=== PATIENT | male | born 1970 | race Caucasian/White ===

== ENCOUNTER 2017-06-21 10:33 | Emergency (ER) | payer BC, OTHER ==
[~2017-06-21] VITALS: Ht 180.3 cm; Wt 89.1 kg
[~2017-06-21 10:33] MED LIST: MULTTAB PO; NEXI20CA PO; ZYRT10CA PO
[2017-06-21] MEDS ORDERED: AMLO5CAP PO (10:44)
[2017-06-21] MEDS ORDERED: BENZ100C5 PO (10:44)
[2017-06-21] MEDS ORDERED: CEFU1TAB20 PO (10:44)
--- NOTE | 2017-06-21 11:28 | REP ---
Clinical: Shortness of breath. Technique: PA and lateral. Comparison: 12/12/2001. Findings: Subtle early left lower lobe infiltrate cannot be excluded and should be correlated with physical examination and auscultation. The remainder of lung gonzales are clear. No effusion. No pneumothorax. Mediastinum and cardiac silhouette normal. Skeletal structures intact. Impression: Suspected early left lower lobe infiltrate requires correlation. Signed by Bayron Calloway MD 06/21/2017 11:19 A
[2017-06-21] MEDS ORDERED: DOXY100T16 PO (11:57)
[2017-06-21] MEDS ORDERED: PRED20TA PO (11:57)
[2017-06-21 12:15] VITALS: BP 146/84
== END 2017-06-21 12:20 | disposition home or self-care (01) ==
LOC: M ED 10:33
DX: J18.9 Pneumonia, unspecified organism (principal); R03.0 Elevated blood-pressure reading, without diagnosis of hypertension; Z87.891 Personal history of nicotine dependence; Z91.048 Other nonmedicinal substance allergy status; Z79.899 Other long term (current) drug therapy

== ENCOUNTER 2017-12-28 14:34 | Emergency (ER) | payer BC, OTHER ==
[2017-12-28 16:58] LABS: BASO % 0.5 % (0.0-1.0); EOS # 0.1 10^3/uL (0.0-0.50); EOS % 1.5 % (0.0-3.0); HEMATOCRIT 43.5 % (42.0-52.0); IMMATURE GRANULOCYTE % 0.4 % (0-3.0); LYMPH # 2.5 10^3/uL (1.5-4.5); LYMPH % 30.9 % (24.0-44.0); MEAN CORPUSCULAR HEMOGLOBIN 31.9 pg (27.0-33.0); MEAN CORPUSCULAR HGB CONC 34.5 g/dl (32.0-36.5); MEAN CORPUSCULAR VOLUME 92.6 fl (80.0-96.0); MONO # 0.9 10^3/uL (0.0-0.8); MONO % 11.5 % (0.0-5.0); NEUTROPHILS # 4.4 10^3/uL (1.8-7.7); NEUTROPHILS % 55.2 % (36.0-66.0); PLATELET COUNT, AUTOMATED 274 10^3/uL (150-450)
[2017-12-28] MEDS: NS 1,000 ML IV (17:05)
[2017-12-28] MEDS: diphenhydrAMINE INJ 50MG/ML VIAL (J1200) IV (17:05)
[2017-12-28] MEDS: KETOROLAC 30 MG/ML VIAL (J1885) IV (17:05)
[2017-12-28 17:20] LABS: ANION GAP 9 MEQ/L (8-16); BLOOD UREA NITROGEN 25 MG/DL (7-18); CALCIUM LEVEL 9.6 MG/DL (8.5-10.1); CARBON DIOXIDE LEVEL 28 MEQ/L (21-32); CHLORIDE LEVEL 106 MEQ/L (98-107); CREATININE FOR GFR 0.77 MG/DL (0.70-1.30); GLOMERULAR FILTRATION RATE > 60.0 (>60); GLUCOSE, FASTING 102 MG/DL (70-100); POTASSIUM SERUM 4.5 MEQ/L (3.5-5.1); SODIUM LEVEL 143 MEQ/L (136-145)
[2017-12-28] MEDS ORDERED: ISOVUE-370 76% 100ML VIAL (Q9967) As Ordered (17:32)
[2017-12-28] MEDS: METOCLOPRAMIDE INJ 10MG/2ML VIAL (J2765) IV (17:33)
[2017-12-28] MEDS: traMADol 50 MG TAB PO (18:41)
[2017-12-28] MEDS: carBAMazepine 200 MG TAB PO (19:21)
== END 2017-12-28 19:51 | disposition home or self-care (01) ==
LOC: M ED 14:34
DX: G50.0 Trigeminal neuralgia (principal); Z98.890 Other specified postprocedural states; I10 Essential (primary) hypertension; K21.9 Gastro-esophageal reflux disease without esophagitis; Z79.899 Other long term (current) drug therapy
CPT/HCPCS: J1200

== ENCOUNTER → 2019-11-03 | Outpatient (REF) | payer OTHER ==
[~2019-11-03] MED LIST changes: +ALEV220C2 PO; +AMLO5CAP34 PO; +BENZ-18 PO; +CARB20TA PO; +CEFU1TAB20 PO; +DOXY100T27 PO; +PRED20TA PO; +RANI1TAB38 PO; +TYLE500T78 PO; +XYZASOL2 PO
== END ==
LOC: M LAB REF 12:19
PROVIDERS: ATTEND Nurse Practitioner Adult Health
DX: E83.52 Hypercalcemia (principal)

== ENCOUNTER 2020-11-06 13:24 | Inpatient (IN) | payer BC, OTHER ==
[~2020-11-06] VITALS: Ht 180.3 cm; Wt 87.2 kg
[2020-11-06] MEDS: dexameTHASONE 4 MG/ML 1ML VIAL (J1100 PER 1MG) IV SCH (09:00)
--- NOTE | 2020-11-06 14:13 | REP ---
INDICATION: SOB. COMPARISON: 06/21/2017 TECHNIQUE: Portable FINDINGS: The technique utilized in obtaining the radiograph has magnified the cardiac silhouette and accentuated the interstitial markings. The lungs gonzales are hypoexpanded further accentuating the interstitial markings and cardiac silhouette size. Subtle patchy airspace opacities may be developing. The pleural angles are sharp. The osseous structures are within normal limits. IMPRESSION: Possible airspace disease. PA and lateral views of the chest recommended with adequate inspiration. <Electronically signed by Gael Zurita > 11/06/20 [id number]
[2020-11-06] MEDS ORDERED: NS 1,000 ML IV ONE (14:15)
[2020-11-06 14:27] LABS: BASO % 0.2 % (0.0-1.0); HEMATOCRIT 44.8 % (42.0-52.0); HEMOGLOBIN 14.9 g/dl (13.5-17.5); LYMPH # 0.7 10^3/uL (1.5-5.0); LYMPH % 11.9 % (24.0-44.0); MEAN CORPUSCULAR HEMOGLOBIN 30.7 pg (27.0-33.0); MEAN CORPUSCULAR HGB CONC 33.3 g/dl (32.0-36.5); MEAN CORPUSCULAR VOLUME 92.2 fl (80.0-96.0); MONO # 0.8 10^3/uL (0.0-0.8); MONO % 13.1 % (0.0-5.0); NEUTROPHILS # 4.3 10^3/uL (1.5-8.5); NEUTROPHILS % 74.1 % (36.0-66.0); PLATELET COUNT, AUTOMATED 234 10^3/uL (150-450); RED BLOOD COUNT 4.86 10^6/uL (4.30-6.10); WHITE BLOOD COUNT 5.8 10^3/uL (4.0-10.0)
[2020-11-06 14:59] LABS: BLOOD UREA NITROGEN 23 MG/DL (7-18); CALCIUM LEVEL 9.4 MG/DL (8.5-10.1); CARBON DIOXIDE LEVEL 28 MEQ/L (21-32); CHLORIDE LEVEL 103 MEQ/L (98-107); CREATININE FOR GFR 0.99 MG/DL (0.70-1.30); GLOMERULAR FILTRATION RATE > 60.0 (>56); GLUCOSE, FASTING 84 MG/DL (70-100); SODIUM LEVEL 139 MEQ/L (136-145)
[2020-11-06] MEDS ORDERED: ACETAMINOPHEN 325 MG TAB PO ONE (15:00)
[2020-11-06] MEDS ORDERED: ONDANSETRON 4MG/2ML VIAL IV ONE (15:00)
[2020-11-06] MEDS ORDERED: IPRATROPIUM 0.5MG/ALBUTEROL 2.5MG INH SOL UD 3ML (DUONEB) NEB ONE (15:15)
[2020-11-06] MEDS ORDERED: ALBUTEROL SULFATE 2.5 MG/0.5 ML INH NEB SOLN NEB ONE (15:15)
[2020-11-06] MEDS ORDERED: ISOVUE-370 76% 100ML VIAL As Ordered ONE (15:27)
--- NOTE | 2020-11-06 16:14 | REP ---
INDICATION: SOB; r/o pneumonia. COMPARISON: None TECHNIQUE: 100 cc Isovue 370 FINDINGS: There are borderline mediastinal and right hilar lymph nodes. There are no pleural or pericardial effusions. The imaged upper abdomen is within normal limits. The imaged osseous structures are within normal limits. Evaluation of the lung gonzales shows patchy bilateral ground-glass opacities. There are no significant nodules or masses. There is an incidental calcified granuloma in the right upper lobe. The aforementioned opacities could, however, obscure a significant nodule. There is cylindrical bronchiectasis. IMPRESSION: Patchy ground-glass opacities seen bilaterally consistent with airspace disease. The findings are consistent with the clinical diagnosis of pneumonia. Follow-up is recommended. <Electronically signed by Gael Zurita > 11/06/20 [id number]
[2020-11-06 16:57] LABS: RSV AMPLIFICATION NEGATIVE (NEGATIVE)
[2020-11-06] MEDS ORDERED: IBUPROFEN 800 MG TAB PO ONE (17:15)
[2020-11-06] MEDS ORDERED: cefTRIAXone SOD 1 GM in D5W MINI-BAG PLUS 50 ML IV ONE (17:30)
[2020-11-06] MEDS ORDERED: AZITHROMYCIN INJ 500 MG, VIAL MATE ADAPTER 1 EACH in D5W 250 ML IV ONE (17:30)
[2020-11-06 17:42] LABS: ALBUMIN 3.7 GM/DL (3.2-5.2); ALT/SGPT 46 U/L (12-78); BILIRUBIN,DIRECT 0.2 MG/DL (0.0-0.2); BILIRUBIN,TOTAL 0.4 MG/DL (0.2-1.0); C REACTIVE PROTEIN QUANTITATIV 9.54 MG/DL (0.00-0.30); FERRITIN 781 NG/ML (26-388); LDH LACTATE DEHYDROGENASE 357 U/L (87-241); MAGNESIUM LEVEL 2.5 MG/DL (1.8-2.4); TOTAL PROTEIN 7.4 GM/DL (6.4-8.2)
[2020-11-06 18:05] LABS: INR 0.93; PROTHROMBIN TIME 12.7 SECONDS (12.5-14.3)
[2020-11-06 18:08] LABS: D-DIMER QUANT 647.64 ng/ml (<500)
[2020-11-06] MEDS ORDERED: OMEP-218 PO (18:09)
[2020-11-06] MEDS ORDERED: ALBU8.5H INH (18:09)
[2020-11-06] MEDS ORDERED: ACET-683 PO (18:09)
[2020-11-06] MEDS ORDERED: LOTR5CAP2 PO (18:09)
[2020-11-06] MEDS ORDERED: OSEL75CA2 PO (18:29)
[2020-11-06] MEDS ORDERED: LEVOTAB10 PO (18:30)
--- NOTE | 2020-11-06 19:46 | HPE ---
HISTORY AND PHYSICAL DATE OF ADMISSION: 11/06/2020 CHIEF COMPLAINT: COVID pneumonia. PRIMARY CARE PROVIDER: Phillip Galvan M.D. HISTORY: Manny Garcia is a 50-year-old admitted with bilateral COVID pneumonia. He has had respiratory symptoms for the last four days. He was in a local urgent care, diagnosed with influenza B, started on Tamiflu, felt worse, came to the emergency room. Here, his flu screen is negative but he is COVID positive. CT of the chest shows bilateral basilar infiltrates. He is being admitted for further treatment. PAST MEDICAL HISTORY: 1. Hypertension. 2. Trigeminal neuralgia. PAST SURGICAL HISTORY: 1. EGD and colonoscopy 04/30. 2. Umbilical hernia repair. 3. Surgery for bone spurs in his left hand. FAMILY HISTORY: Noncontributory. SOCIAL HISTORY: Nonsmoker. He smoked for a few years when he was in his 20s. Alcohol intake is low. REVIEW OF SYSTEMS: No epistaxis, hemoptysis, rectal bleeding, urinary bleeding, chest pain, palpitations, syncope. No diarrhea. MEDICATIONS: 1. Amlodipine. 2. Benazepril 5/10 one daily. 3. Tegretol 200 mg b.i.d. 4. Aleve as needed. 5. Tamiflu 75 mg b.i.d. ALLERGIES: Unknown. PHYSICAL EXAMINATION: Vital signs: Blood pressure 134/74, pulse of 100, respiratory rate 22, 93% O2 saturation on room air, 101.9 degrees. General Appearance: Resting comfortably, looks mildly ill. HEENT: Unremarkable. Lungs: Scattered rhonchi. Heart: Regular rate and rhythm, no murmur. Abdomen: Soft, nontender, no masses. Extremities: No clubbing, cyanosis or edema. He moves arms and legs with equal strength, good distal pulses. LABORATORY DATA: White count 5.8, hemoglobin 14.9, platelets 234. Sodium 139, potassium 4, BUN 23, creatinine 0.9, glucose 84. Ferritin 781. LDH 357. C-reactive protein 9.5, procalcitonin pending. COVID is positive. Influenza screen here is negative. IMPRESSION: 1. COVID pneumonia. The patient is being admitted to the medical bed. Supplemental oxygen, dexamethasone and remdesivir. Also cover for community acquired pneumonia with intravenous doxycycline and Rocephin. Most of the prognostic labs for COVID were not run until admission process began so those are currently unavailable. 2. Hypertension. Hold his antihypertensives at this point. 3. ? Recent influenza B. We will offer Tamiflu for now. He has had this for four days and his current influenza B test is negative.
[2020-11-06] MEDS: NS 1,000 ML IV SCH (19:50)
[2020-11-06] MEDS ORDERED: REMDESIVIR 200 MG in NS 250 ML IV ONE (20:00)
--- NOTE | 2020-11-06 20:03 | ECGEPIP ---
[facility] - ED Test Date: 2020-11-06 Pat Name: JOELLEN HERNANDEZ Department: Room: - Gender: Male [employer]ishing [employer]: ADRIANO : 1970 Requested By: JAYASHREE SORENSEN Order Number: [id number] Reading MD: Vinicio Mcnally Measurements Intervals [place] Rate: 108 P: 39 [place]: 176 QRS: 29 QRSD: 93 T: 20 QT: 300 QTc: 403 Interpretive Statements SINUS TACHYCARDIA POSSIBLE PRIOR INFERIOR INFARCT NSTTW ABNORMALITY(S) NO PRIORS FOR COMPARISON Electronically Signed on 11-06-2020 20:02:55 EST by Vinicio Mcnally
[2020-11-06 20:07] LABS: D-DIMER QUANT 655.01 ng/ml (<500)
[2020-11-06 20:26] LABS: C REACTIVE PROTEIN QUANTITATIV 9.84 MG/DL (0.00-0.30); CPK CREATINE PHOSPHOKINASE 57 U/L (39-308); FERRITIN 674 NG/ML (26-388); LDH LACTATE DEHYDROGENASE 265 U/L (87-241); NT-PRO BNP 27 PG/ML (<125); TROPONIN I < 0.02 NG/ML (< 0.10)
[2020-11-06 20:27] VITALS: BP 126/66
[2020-11-06] MEDS: ENOXAPARIN 40MG/0.4ML SYRINGE (J1650 PER 10MG) SC SCH (20:48)
[2020-11-06] MEDS ORDERED: SODIUM CHLORIDE 0.9% INJ 10 ML SYR IV ONE (22:00)
[2020-11-06] MEDS: DOXYCYCLINE HYCLATE 100 MG in D5W MINI-BAG PLUS 100 ML IV SCH (22:22)
[2020-11-07] VITALS: BP 114/63
[2020-11-07] MEDS: NS 1,000 ML IV SCH ×2 (01:15→09:33)
[2020-11-07 04:00] VITALS: BP 118/71
[2020-11-07 08:00] VITALS: BP 121/69; O2SAT 91
[2020-11-07] MEDS: dexameTHASONE 4 MG/ML 1ML VIAL (J1100 PER 1MG) IV SCH (08:26)
[2020-11-07] MEDS: cefTRIAXone SOD 2 GM in D5W MINI-BAG PLUS 50 ML IV SCH (08:26)
[2020-11-07] MEDS: ASPIRIN 81 MG ENTERIC TAB PO SCH (08:26)
[2020-11-07] MEDS: DOXYCYCLINE HYCLATE 100 MG in D5W MINI-BAG PLUS 100 ML IV SCH ×2 (09:33→21:30)
[2020-11-07 09:37] LABS: HEMATOCRIT 39.9 % (42.0-52.0); HEMOGLOBIN 13.5 g/dl (13.5-17.5); LYMPH # 0.6 10^3/uL (1.5-5.0); LYMPH % 12.1 % (24.0-44.0); MEAN CORPUSCULAR HEMOGLOBIN 31.1 pg (27.0-33.0); MEAN CORPUSCULAR HGB CONC 33.8 g/dl (32.0-36.5); MEAN CORPUSCULAR VOLUME 91.9 fl (80.0-96.0); MONO # 0.5 10^3/uL (0.0-0.8); MONO % 11.2 % (0.0-5.0); NEUTROPHILS # 3.5 10^3/uL (1.5-8.5); NEUTROPHILS % 76.3 % (36.0-66.0); PLATELET COUNT, AUTOMATED 219 10^3/uL (150-450); RED BLOOD COUNT 4.34 10^6/uL (4.30-6.10); WHITE BLOOD COUNT 4.6 10^3/uL (4.0-10.0)
[2020-11-07 10:16] LABS: BLOOD UREA NITROGEN 17 MG/DL (7-18); CARBON DIOXIDE LEVEL 25 MEQ/L (21-32); CHLORIDE LEVEL 108 MEQ/L (98-107); CREATININE FOR GFR 0.56 MG/DL (0.70-1.30); GLOMERULAR FILTRATION RATE > 60.0 (>56); GLUCOSE, FASTING 114 MG/DL (70-100); POTASSIUM SERUM 4.1 MEQ/L (3.5-5.1); SODIUM LEVEL 140 MEQ/L (136-145)
[2020-11-07 10:17] LABS: ALBUMIN 2.9 GM/DL (3.2-5.2); ALT/SGPT 34 U/L (12-78); BILIRUBIN,DIRECT 0.1 MG/DL (0.0-0.2); BILIRUBIN,TOTAL 0.3 MG/DL (0.2-1.0); CALCIUM LEVEL 8.5 MG/DL (8.5-10.1); MAGNESIUM LEVEL 2.4 MG/DL (1.8-2.4); TOTAL PROTEIN 6.1 GM/DL (6.4-8.2)
[2020-11-07 12:00] VITALS: BP 116/70
--- NOTE | 2020-11-07 14:40 | IPNPDOC ---
Date Seen The patient was seen on 11/07/20. Progress Note SUBJECTIVE: 50 yo M with a hx of HTN and trigeminal neuralgia, developed respiratory symptoms 4 days prior to admission, tested positive for influenza, covid negative at the time. patient had been feeling fatigue, had reduced PO intake. On arrival to ED, tested positive for Covid-19 but is flu negative. Was hypoxic, required 2L NC to maintain sat at 93%. Patient was started on dexamethasone and remdesivir and started on IV doxy and ceftriaxone. Patient was seen and examined at bedside. Doing well, appears comfortable in bed on NC. Denies SOB, chest pain, n/v/d, fevers and chills. OBJECTIVE PHYSICAL EXAMINATION: VITAL SIGNS: please see below General: NAD, comfortable HEENT: PERRLA, EOMI, sclerae clear Neck: supple, normal ROM, no JVD Respiratory: lungs CTAB, no wheeze, no rales, no crackles CVS: RRR, normal S1, S2, no murmurs Abdo: soft, no masses, no hepatosplenomegaly, BS+, no rebound tenderness Extremities: no edema, pulses 2+ MSK: no joint deformities, normal ROM Neuro: no focal neuro deficits, moving all 4 extremities, CN2-12 intact. Strength 5/5 in all 4 extremities. No nystagmus. Psych: calm, cooperative, AAO x 3 LABORATORY DATA, IMAGING STUDIES, MICROBIOLOGY: Please see below. CXR (11/06/20): Possible airspace disease. PA and lateral views of the chest recommended with adequate inspiration. CT chest w contrast (11/06/20): Patchy ground-glass opacities seen bilaterally consistent with airspace disease. The findings are consistent with the clinical diagnosis of pneumonia. Follow-up is recommended. DVT prophylaxis ordered?: Please does Lovenox ASSESSMENT AND PLAN: Covid 19 infection: - O2 supplementation with NC, currently 2L - D dimer 650, ferritin 674. LDH 265. - CT chest c/w pneumonia. Procal 0.12, increased from 0.09. - Remdesivir (day 2), dexamethasone 6 mg IV (day 2) - Doxycycline IV (Day 2), ceftriaxone (day 2) - combivent - DVT ppx lovenox 40 mg SC daily - incentive spirometry - mucinex, tessalon HTN - resume home meds Recent Flu positive - negative flu screen - completed 4 days tamiflu Dispo: expected DC in 1-2 days, may require home O2. VS, I&O, 24H, Fishbone Vital Signs/I&O Vital Signs Date Time Temp Pulse Resp B/P (MAP) Pulse Ox O2 Delivery O2 Flow Rate FiO2 11/07/20 12:00 99.0 85 19 116/70 (85) 91 Nasal Cannula 2.0 I&O- Last 24 Hours up to 6 AM 11/07/20 06:00 Intake Total 1050 ml Output Total 700 ml Balance 350 ml Laboratory Data 24H LABS Laboratory Tests 2 11/06/20 16:06: Coronavirus (COVID-19)(PCR) POSITIVEA, Influenza Type A (RT-PCR) NEGATIVE, Influenza Type B (RT-PCR) NEGATIVE, Respiratory Syncytial Virus (PCR) NEGATIVE 11/06/20 17:08: Lactic Acid Level 1.1 11/06/20 19:47: Fibrinogen 697H, D-Dimer, Quantitative 655.01H, Ferritin 674H, Lactate Dehydrogenase 265H, Total Creatine Kinase 57, Troponin I < 0.02, C-Reactive Protein, Quantitative 9.84H, DH-Yrj-D-Type Natriuretic Peptide 27, Procalcitonin 0.12 11/07/20 09:03: Immature Granulocyte % (Auto) 0.4, Neutrophils (%) (Auto) 76.3H, Lymphocytes (%) (Auto) 12.1L, Monocytes (%) (Auto) 11.2H, Eosinophils (%) (Auto) 0.0, Basophils (%) (Auto) 0.0, Neutrophils # (Auto) 3.5, Lymphocytes # (Auto) 0.6L, Monocytes # (Auto) 0.5, Eosinophils # (Auto) 0.0, Basophils # (Auto) 0.0, Nucleated Red Blood Cells % (auto) 0.0, Anion Gap 7L, Glomerular Filtration Rate > 60.0, Calcium Level 8.5, Magnesium Level 2.4, Total Bilirubin 0.3, Direct Bilirubin 0.1, Aspartate Amino Transf (AST/SGOT) 18, Alanine Aminotransferase (ALT/SGPT) 34, Alkaline Phosphatase 63, Total Protein 6.1L, Albumin 2.9#L, Albumin/Globulin Ratio 0.9 CBC/BMP Laboratory Tests 11/07/20 09:03 Microbiology Microbiology 11/06/20 Blood Culture, Received Pending 11/06/20 Blood Culture, Received Pending ALISON GEIGER MD Nov 07, 2020 14:40
[2020-11-07] MEDS ORDERED: COMBIVENT RESPIMAT 100-20MCG INHALER 4GM INH PRN (14:45)
[2020-11-07 16:00] VITALS: BP 120/66
[2020-11-07 20:00] VITALS: BP 129/68; O2SAT 94
[2020-11-07] MEDS: ENOXAPARIN 40MG/0.4ML SYRINGE (J1650 PER 10MG) SC SCH (21:30)
[2020-11-07] MEDS: REMDESIVIR 100 MG in NS 250 ML IV SCH (21:31)
[2020-11-07] MEDS: SODIUM CHLORIDE 0.9% INJ 10 ML SYR IV SCH (21:31)
[2020-11-08] VITALS (10 sets, daily range): BP systolic 126–143; BP diastolic 72–90; O2SAT 90–95
[2020-11-08 07:50] LABS: HEMATOCRIT 37.9 % (42.0-52.0); HEMOGLOBIN 12.8 g/dl (13.5-17.5); MEAN CORPUSCULAR HGB CONC 33.8 g/dl (32.0-36.5); MEAN CORPUSCULAR VOLUME 91.8 fl (80.0-96.0); PLATELET COUNT, AUTOMATED 245 10^3/uL (150-450); RED BLOOD COUNT 4.13 10^6/uL (4.30-6.10); WHITE BLOOD COUNT 6.5 10^3/uL (4.0-10.0)
[2020-11-08 08:03] LABS: INR 1.06; PARTIAL THROMBOPLASTIN TIME 31.5 SECONDS (24.2-38.5)
[2020-11-08 08:21] LABS: BLOOD UREA NITROGEN 16 MG/DL (7-18); CREATININE FOR GFR 0.58 MG/DL (0.70-1.30); GLUCOSE, FASTING 98 MG/DL (70-100)
[2020-11-08 08:22] LABS: ALBUMIN 2.9 GM/DL (3.2-5.2); ALT/SGPT 33 U/L (12-78); BILIRUBIN,DIRECT 0.1 MG/DL (0.0-0.2); BILIRUBIN,TOTAL 0.3 MG/DL (0.2-1.0); CARBON DIOXIDE LEVEL 27 MEQ/L (21-32); CHLORIDE LEVEL 108 MEQ/L (98-107); CPK CREATINE PHOSPHOKINASE 62 U/L (39-308); FERRITIN 604 NG/ML (26-388); GLOMERULAR FILTRATION RATE > 60.0 (>56); LDH LACTATE DEHYDROGENASE 315 U/L (87-241); MAGNESIUM LEVEL 2.3 MG/DL (1.8-2.4); NT-PRO BNP 341 PG/ML (<125); POTASSIUM SERUM 4.3 MEQ/L (3.5-5.1); SODIUM LEVEL 143 MEQ/L (136-145); TOTAL PROTEIN 5.7 GM/DL (6.4-8.2); TROPONIN I < 0.02 NG/ML (< 0.10)
[2020-11-08 08:24] LABS: ATYPICAL LYMPH 3 % (0-5); LYMPHOCYTES 13 % (16-44); MONOCYTES 12 % (0-5); NEUTROPHILS 70 % (28-66)
[2020-11-08 08:25] LABS: ANISOCYTOSIS 1+; PLATELET CLUMPS SMALL AMT; PLATELET ESTIMATE NORMAL (NORMAL)
[2020-11-08] MEDS: ASPIRIN 81 MG ENTERIC TAB PO SCH (09:22)
[2020-11-08] MEDS: cefTRIAXone SOD 2 GM in D5W MINI-BAG PLUS 50 ML IV SCH (09:22)
[2020-11-08] MEDS: dexameTHASONE 4 MG/ML 1ML VIAL (J1100 PER 1MG) IV SCH (09:22)
[2020-11-08] MEDS: DOXYCYCLINE HYCLATE 100 MG in D5W MINI-BAG PLUS 100 ML IV SCH ×2 (09:23→22:04)
--- NOTE | 2020-11-08 14:13 | IPNPDOC ---
Text Note Date of Service The patient was seen on 11/08/20. NOTE SUBJECTIVE: 50 yo M with a hx of HTN and trigeminal neuralgia, developed resp iratory symptoms 4 days prior to admission, tested positive for influenza, covid negative at the time. patient had been feeling fatigue, had reduced PO intake. On arrival to ED, tested positive for Covid-19 but is flu negative. Was hypoxic, required 2L NC to maintain sat at 93%. Patient was started on dexamethasone and remdesivir and started on IV doxy and ceftriaxone. Patient was seen and examined at bedside. He is doing well requesting home medications be restarted, discussed plans to wean him today with he and his on the phone. Denies SOB, chest pain, n/v/d, fevers and chills. OBJECTIVE PHYSICAL EXAMINATION: VITAL SIGNS: please see below General: NAD, comfortable HEENT: PERRLA, EOMI, sclerae clear Neck: supple, normal ROM, no JVD Respiratory: lungs CTAB, no wheeze, no crackles, rhonchi. CVS: RRR, normal S1, S2, no murmurs Abdo: soft, no masses, no hepatosplenomegaly, BS+, no rebound tenderness Extremities: no edema, pulses 2+ MSK: no joint deformities, normal ROM Neuro: no focal neuro deficits, moving all 4 extremities, CN2-12 intact. Strength 5/5 in all 4 extremities. No nystagmus. Psych: calm, cooperative, AAO x 3 LABORATORY DATA, IMAGING STUDIES, MICROBIOLOGY: Please see below. CXR (11/06/20): Possible airspace disease. PA and lateral views of the chest recommended with adequate inspiration. CT chest w contrast (11/06/20): Patchy ground-glass opacities seen bilaterally consistent with airspace disease. The findings are consistent with the clinical diagnosis of pneumonia. Follow-up is recommended. DVT prophylaxis ordered?: Please does Lovenox ASSESSMENT/PLAN: #. Covid 19 infection -O2 supplementation with NC, currently 2L -CT chest c/w pneumonia. Procal 0.07 -Remdesivir (day 3), dexamethasone 6 mg IV (day 3) -Doxycycline IV (Day 3), ceftriaxone (day 3). -Combivent -DVT ppx lovenox 40 mg SC daily -Incentive spirometry -Mucinex, tessalon -Weaning trial today, if necessary will send him with home O2. #. HTN - Continue home Amlodipine, Benazepril. #. GERD -Continue home omeprazole #. Seasonal Allergies -Continue Zyzal equivalent. #. Recent Flu positive - negative flu screen - completed 4 days tamiflu Dispo: expected DC tomorrow possible, may require home O2. Will have him follow up with pulmonology in 1 month, PCP in 2 weeks. Would like albuterol w/ spacer on DC. VS,Fishbone, I+O VS, Fishbone, I+O Laboratory Tests 11/08/20 06:53 Vital Signs Date Time Temp Pulse Resp B/P (MAP) Pulse Ox O2 Delivery O2 Flow Rate FiO2 11/08/20 12:00 2.0 11/08/20 12:00 97.3 82 18 133/77 (95) 95 Nasal Cannula I&O- Last 24 Hours up to 6 AM 11/08/20 06:00 Intake Total 2720 ml Output Total 2050 ml Balance 670 ml GME ATTESTATION GME ATTESTATION My faculty preceptor for this patient encounter was physically present during the encounter and was fully available. All aspects of the patient interview, examination, medical decision making process, and medical care plan development were reviewed and approved by the faculty preceptor. The faculty preceptor is aware and concurs with the plan as stated in the body of this note and will attest to such by his/her cosignature. ATTENDING NOTE I, Cole Daly MD, have independently examined this patient and performed my own physical exam, as well as reviewed the documentation and edited where necessary. I have discussed in detail with the resident / student the findings and plan of treatment as documented by the resident / student and edited their note. I agree with their findings and treatment plan and have edited their documentation. KAITLYN STOKES DO Nov 08, 2020 14:13 COLE DALY MD Nov 11, 2020 12:58
[2020-11-08] MEDS: CETIRIZINE (ZyrTEC) 10 MG TAB PO SCH (15:29)
[2020-11-08] MEDS: OMEPRAZOLE 20 MG CAP PO SCH (15:29)
[2020-11-08] MEDS: REMDESIVIR 100 MG in NS 250 ML IV SCH (20:21)
[2020-11-08] MEDS: SODIUM CHLORIDE 0.9% INJ 10 ML SYR IV SCH (21:00)
[2020-11-08] MEDS ORDERED: BENAZEPRIL 5 MG TAB PO SCH (21:00)
[2020-11-08] MEDS ORDERED: amLODIPine 5 MG TAB PO SCH (21:00)
[2020-11-08] MEDS: ENOXAPARIN 40MG/0.4ML SYRINGE (J1650 PER 10MG) SC SCH (22:05)
[2020-11-09] VITALS: BP 118/63; O2SAT 94
[2020-11-09 04:00] VITALS: BP 128/67; O2SAT 92
[2020-11-09 07:41] LABS: HEMATOCRIT 36.9 % (42.0-52.0); HEMOGLOBIN 12.4 g/dl (13.5-17.5); MEAN CORPUSCULAR HEMOGLOBIN 30.7 pg (27.0-33.0); MEAN CORPUSCULAR HGB CONC 33.6 g/dl (32.0-36.5); MEAN CORPUSCULAR VOLUME 91.3 fl (80.0-96.0); PLATELET COUNT, AUTOMATED 267 10^3/uL (150-450); RED BLOOD COUNT 4.04 10^6/uL (4.30-6.10); WHITE BLOOD COUNT 9.5 10^3/uL (4.0-10.0)
[2020-11-09 07:57] LABS: BLOOD UREA NITROGEN 15 MG/DL (7-18); CALCIUM LEVEL 9.1 MG/DL (8.5-10.1); CARBON DIOXIDE LEVEL 26 MEQ/L (21-32); CHLORIDE LEVEL 107 MEQ/L (98-107); CREATININE FOR GFR 0.63 MG/DL (0.70-1.30); GLOMERULAR FILTRATION RATE > 60.0 (>56); GLUCOSE, FASTING 90 MG/DL (70-100); SODIUM LEVEL 141 MEQ/L (136-145)
[2020-11-09 08:00] VITALS: O2SAT 92
[2020-11-09] MEDS: cefTRIAXone SOD 2 GM in D5W MINI-BAG PLUS 50 ML IV SCH (08:02)
[2020-11-09] MEDS: OMEPRAZOLE 20 MG CAP PO SCH (08:03)
[2020-11-09] MEDS: dexameTHASONE 4 MG/ML 1ML VIAL (J1100 PER 1MG) IV SCH (08:03)
[2020-11-09] MEDS: CETIRIZINE (ZyrTEC) 10 MG TAB PO SCH (08:03)
[2020-11-09] MEDS: ASPIRIN 81 MG ENTERIC TAB PO SCH (08:03)
[2020-11-09 08:47] LABS: ATYPICAL LYMPH 2 % (0-5); LYMPHOCYTES 14 % (16-44); MONOCYTES 11 % (0-5); NEUTROPHILS 73 % (28-66); PLATELET ESTIMATE NORMAL (NORMAL)
[2020-11-09 08:48] LABS: ANISOCYTOSIS 1+
[2020-11-09] MEDS ORDERED: VITA250T4 PO (09:47)
[2020-11-09] MEDS ORDERED: FAMO20TA PO (09:47)
[2020-11-09] MEDS ORDERED: DEXA2TA PO (09:47)
[2020-11-09] MEDS ORDERED: ZINC220CA PO (09:47)
--- NOTE | 2020-11-09 10:39 | DS.PDOC ---
Discharge Summary General Date of Admission Nov 06, 2020 at 17:48 Date of Discharge 11/09/2020 Primary Care Physician: Jr Galvan Collins Attending Physician: BRANDO BURRIS MD Discharge Summary PROCEDURES PERFORMED DURING STAY: None. ADMITTING/DISCHARGE DIAGNOSES: Covid 19 pneumonia Hypertension GERD Seasonal allergies Trigeminal Neuralgia COMPLICATIONS/CHIEF COMPLAINT: Pneumonia Due To Covid. HISTORY OF PRESENT ILLNESS/HOSPITAL COURSE: Patient presented on 11/06/20 with a 4 day history of upper respiratory symptoms. He had been seen at a local urgent care, diagnosed with influenza B and started on Tamiflu. He became worse however, and came to the emergency department. In the emergency department his flu screen was negative but he was Covid positive. CT of his chest showed bilateral basilar infiltrates and findings consistent with Covid pneumonia. Furthermore he was desaturating with exertion and so required admission to the hospital. On admission, the patient was started on IV dexamethasone, Remdesivir, doxycycline, and Rocephin. He was continued on the antibiotics for 3 days given his chest CT findings, however on day of discharge these were discontinued as his pro calcitonin level was normal. He he underwent a weaning trial on day 2 ho wever he desaturated to 87% again and was kept on nasal cannula at rest as well. By day of discharge her repeat 6 minute walk test was performed and he again failed coughing him for home oxygen as he was doing quite well on only 1 L nasal cannula. He was discharged home with a 5 day course of dexamethasone, and inhaler, spacer was called into the pharmacy, as well as zinc vitamin C. A prescription was written for his home oxygen. Patient felt comfortable going home and had no questions or concerns. He verbalized understanding and agreement with the plan moving forward. DISCHARGE MEDICATIONS: Please see below. ALLERGIES: Please see below. PHYSICAL EXAMINATION ON DISCHARGE: VITAL SIGNS: Please see below. General: NAD, comfortable HEENT: PERRLA, EOMI, sclerae clear Neck: supple, normal ROM, no JVD Respiratory: lungs CTAB, no wheeze, no crackles, rhonchi. CVS: RRR, normal S1, S2, no murmurs Abdo: soft, no masses, no hepatosplenomegaly, BS+, no rebound tenderness Extremities: no edema, pulses 2+ MSK: no joint deformities, normal ROM Neuro: no focal neuro deficits, moving all 4 extremities, CN2-12 intact. Psych: calm, cooperative, AAO x 3 LABORATORY DATA: Please see below. IMAGING: CXR (11/06/20): Possible airspace disease. PA and lateral views of the chest recommended with adequate inspiration. CT chest w contrast (11/06/20): Patchy ground-glass opacities seen bilaterally consistent with airspace disease. The findings are consistent with the clinical diagnosis of pneumonia. Follow-up is recommended. PROGNOSIS: Good. ACTIVITY: As tolerated. DIET: As tolerated DISCHARGE PLAN: home DISCHARGE INSTRUCTIONS: 1. Please follow up with PCP in the next 2 weeks. 2. Ensure you finish your 5 day course of dexamethasone. DISCHARGE CONDITION: Stable. TIME SPENT ON DISCHARGE: 32 minutes. Vital Signs/I&Os Vital Signs Date Time Temp Pulse Resp B/P (MAP) Pulse Ox O2 Delivery O2 Flow Rate FiO2 11/09/20 08:00 96.2 78 18 91 Nasal Cannula 1.0 11/09/20 04:00 128/67 (87) I&O- Last 24 Hours up to 6 AM 11/09/20 06:00 Intake Total 2150 ml Output Total 2175 ml Balance -25 ml Laboratory Data Labs 24H Laboratory Tests 2 11/09/20 07:17: Neutrophils (%) (Auto) , Nucleated Red Blood Cells % (auto) 0.0, Neutrophils 73H, Lymphocytes (Manual) 14L, Monocytes (Manual) 11H, Atypical Lymphocytes 2, Anisocytosis 1+, Platelet Estimate NORMAL, Anion Gap 8, Glomerular Filtration Rate > 60.0, Calcium Level 9.1 CBC/BMP Laboratory Tests 11/09/20 07:17 Microbiology Microbiology 11/06/20 Blood Culture - Preliminary, Resulted No Growth after 48 hours. All Specime... 11/06/20 Blood Culture - Preliminary, Resulted No Growth after 48 hours. All Specime... Discharge Medications Scheduled Amlodipine Besylate/Benazepril (Lotrel 5-10 mg Capsule) 1 Each Capsule, 1 CAP PO QHS, (Reported) Ascorbic Acid (Vitamin C) 250 Mg Tablet, 250 MG PO DAILY Dexamethasone (Dexamethasone) 2 Mg Tablet, 2 MG PO DAILY Famotidine (Famotidine) 20 Mg Tablet, 1 TAB PO DAILY Levocetirizine Dihydrochloride (Levocetirizine Dihydrochloride) 5 Mg Tablet, 5 MG PO DAILY, (Reported) Omeprazole (Omeprazole) 20 Mg Capsule.dr, 20 MG PO DAILY, (Reported) Zinc Sulfate (Zinc Sulfate) 220 Mg Capsule, 220 MG PO DAILY Scheduled PRN Acetaminophen (Acetaminophen) 500 Mg Tablet, 1,000 MG PO Q8H PRN for PAIN / FEVER, (Reported) Albuterol Sulfate (Albuterol Sulfate Hfa) 8.5 Gm Hfa.aer.ad, 2 PUFFS INH QID PRN for SHORTNESS OF BREATH, (Reported) Allergies Coded Allergies: No Known Allergies (Verified Allergy, Unknown, 11/06/20) GME ATTESTATION GME ATTESTATION My faculty preceptor for this patient encounter was physically present during the encounter and was fully available. All aspects of the patient interview, examination, medical decision making process, and medical care plan development were reviewed and approved by the faculty preceptor. The faculty preceptor is aware and concurs with the plan as stated in the body of this note and will attest to such by his/her cosignature. KAITLYN STOKES DO Nov 09, 2020 10:39
[2020-11-09] MEDS ORDERED: COMBAER6 INH (11:43)
== END 2020-11-09 15:45 | disposition home health service (06) | DRG 137 ==
LOC: M ED 13:24 → M ED INP 17:48 → ENRESERV 18:17 → M 4MAIN 20:27
PROVIDERS: ADMIT Family Medicine; ATTEND Internal Medicine
DX: U07.1 COVID-19 (principal); J12.89 Other viral pneumonia; I10 Essential (primary) hypertension; K21.9 Gastro-esophageal reflux disease without esophagitis; G50.0 Trigeminal neuralgia; Z79.899 Other long term (current) drug therapy

== ENCOUNTER → 2021-02-06 | Outpatient (CLI) | payer BC, OTHER ==
[~2021-02-06] MED LIST changes: +ACET-683 PO; +ALBU8.5H INH; +COMBAER6 INH; +DEXA2TA PO; +FAMO20TA PO; +LEVOTAB10 PO; +LOTR5CAP2 PO; +OMEP-218 PO; +OSEL75CA2 PO; +VITA250T4 PO; +ZINC220CA PO
--- NOTE | 2021-02-06 15:59 | REP ---
INDICATION: F/U BILATERAL COVID PNEUMONIA, HX OF COVID 10/2020. COMPARISON: Comparison chest x-ray 06 November 2020. TECHNIQUE: Two views.. FINDINGS: The lungs are well inflated and free of infiltrate. The pleural angles are sharp. The heart size is normal. Pulmonary vasculature is not increased. No significant bony abnormality is seen. There is a mild levoconvex curvature in the lower thoracic spine unchanged. The previously noted infiltrates have resolved radiographically. IMPRESSION: No acute disease. Previously noted infiltrates have resolved radiographically.. <Electronically signed by Chavo Sanchez > 02/06/21 [id number]
== END ==
LOC: M WUC 14:45
PROVIDERS: ATTEND Internal Medicine
DX: J12.82 Pneumonia due to coronavirus disease 2019 (principal)

== ENCOUNTER 2022-01-21 09:44 | Emergency (ER) | payer BC, OTHER ==
[~2022-01-21] VITALS: Ht 180.3 cm; Wt 92.8 kg
[~2022-01-21 09:44] MED LIST changes: +OMEP-173 PO; -OMEP-218 PO
[2022-01-21 10:25] LABS: HEMATOCRIT 44.1 % (42.0-52.0); HEMOGLOBIN 15.4 g/dl (13.5-17.5); MEAN CORPUSCULAR HEMOGLOBIN 32.5 pg (27.0-33.0); MEAN CORPUSCULAR HGB CONC 34.9 g/dl (32.0-36.5); PLATELET COUNT, AUTOMATED 278 10^3/uL (150-450); RED BLOOD COUNT 4.74 10^6/uL (4.30-6.10); WHITE BLOOD COUNT 16.2 10^3/uL (4.0-10.0)
[2022-01-21 10:54] LABS: BLOOD UREA NITROGEN 18 MG/DL (7-18); CALCIUM LEVEL 10.2 MG/DL (8.5-10.1); CARBON DIOXIDE LEVEL 30 MEQ/L (21-32); CHLORIDE LEVEL 104 MEQ/L (98-107); CREATININE FOR GFR 0.92 MG/DL (0.70-1.30); GLOMERULAR FILTRATION RATE > 60.0 (>56); GLUCOSE, FASTING 94 MG/DL (70-100); POTASSIUM SERUM 4.9 MEQ/L (3.5-5.1); SODIUM LEVEL 138 MEQ/L (136-145)
[2022-01-21] MEDS ORDERED: KETOROLAC 30 MG/ML 1ML VIAL IV ONE (12:25)
[2022-01-21] MEDS ORDERED: ISOVUE-370 76% 100ML VIAL As Ordered ONE (12:27)
[2022-01-21] MEDS ORDERED: CIPROFLOXACIN 500MG TABLET PO ONE (13:45)
[2022-01-21] MEDS ORDERED: ONDA4TAB6 PO (13:45)
[2022-01-21] MEDS ORDERED: CIPR-249 PO (13:45)
[2022-01-21] MEDS ORDERED: METR-265 PO (13:45)
[2022-01-21] MEDS ORDERED: metroNIDAZOLE (FLAGYL) 500MG TABLET PO ONE (13:45)
[2022-01-21 14:15] VITALS: BP 122/64
== END 2022-01-21 14:30 | disposition home or self-care (01) ==
LOC: M ED 09:44
DX: K57.92 Diverticulitis of intestine, part unspecified, without perforation or abscess without bleeding (principal); J45.909 Unspecified asthma, uncomplicated; Z79.899 Other long term (current) drug therapy
CPT/HCPCS: 74177; 80048; 81001; 85027; 96374; 99284; J1885; Q9967

== ENCOUNTER → 2023-02-07 | Outpatient (CLI) | payer BC, OTHER ==
[~2023-02-07] MED LIST changes: +CIPR-249 PO; +METR-265 PO; +ONDA4TAB6 PO
== END ==
LOC: M WHC 13:15
PROVIDERS: ATTEND Internal Medicine
DX: G45.9 Transient cerebral ischemic attack, unspecified (principal); H93.13 Tinnitus, bilateral

== ENCOUNTER → 2024-04-30 | Outpatient (CLI) | payer BC ==
[~2024-04-30] MED LIST changes: +ONDA-282 PO; -ONDA4TAB6 PO; +VITA250T27 PO; -VITA250T4 PO
== END ==
LOC: M RAD 15:22
PROVIDERS: ATTEND Internal Medicine
DX: I65.29 Occlusion and stenosis of unspecified carotid artery (principal)

== ENCOUNTER → 2025-02-10 | Outpatient (CLI) | payer BC | LOC: M RAD 15:48 | PROVIDERS: ATTEND Nurse Practitioner Family | DX: M79.605 Pain in left leg (principal); R22.42 Localized swelling, mass and lump, left lower limb ==